=== PATIENT | female | born 1950 | race Caucasian/White ===

== ENCOUNTER 2024-08-21 16:00 | Emergency (ER) | payer MEDICARE, MEDICAID ==
[~2024-08-21] VITALS: Ht 160 cm; Wt 54.4 kg
[~2024-08-21 16:00] MED LIST: MELA1TAB28 PO; PANT40TA PO; PROP40TA7 PO; TRAZ-187 PO
[2024-08-21 16:10] VITALS: BP 145/58; PULSE 69; RESP 16; TEMP 98.1; O2SAT 98
[2024-08-21 16:41] LABS: BASOPHILS # (AUTO) 0.02 K/uL (0.00-0.20); BASOPHILS % (AUTO) 0.3 % (0.0-5.0); HEMATOCRIT 23.9 % (36-48); IMMATURE GRANULOCYTE ABSOLUTE 0.03 K/uL (0-1); LYMPHOCYTES # (AUTO) 0.7 K/uL (1.0-4.8); LYMPHOCYTES % (AUTO) 12.6 % (21.0-51.0); MEAN CORPUSCULAR HGB CONC 28.5 g/dL (32.0-36.0); MEAN CORPUSCULAR VOLUME 80.7 fL (79-99); MONOCYTES # (AUTO) 0.6 K/uL (0.1-1.0); MONOCYTES % (AUTO) 10.1 % (3.0-13.0); NEUTROPHILS # (AUTO) 4.5 K/uL (1.8-7.7); NEUTROPHILS % (AUTO) 76.5 % (40.0-77.0); PLATELET COUNT (AUTO) 151 K/uL (130-400); RED BLOOD CELL COUNT(AUTO) 2.96 MIL/uL (4.00-5.50); RED CELL DISTRIBUTION WIDTH 19.2 % (11.0-15.5); WHITE BLOOD COUNT (AUTO) 5.9 K/uL (4.8-10.8)
[2024-08-21 16:48] LABS: CREATININE 1.1 mg/dL (0.5-1.0); POTASSIUM 4.6 mmol/L (3.5-5.1)
[2024-08-21] MEDS: LIDOCAINE HCL 1% 20 ML VIAL INJ STA (16:55)
--- NOTE | 2024-08-21 17:24 | HMCIMG ---
CT FACIAL BONES WITHOUT CONTRAST INDICATION: Right facial abscess TECHNIQUE: 3D helical CT acquisition through the facial bones with coronal and sagittal reformatting. CT was performed with one or more of the following dose reduction techniques: Automated exposure control, adjustment of the mA and/or kV according to patient size, or use of iterative reconstruction technique. COMPARISON: None FINDINGS: Patient is edentulous. 4.0 cm organized air/fluid collection surrounding the angle of the right mandible without subjacent periosteal reaction, cortical erosive changes, or any abnormal subperiosteal bone resorption to suggest osteomyelitis. Bilateral parotid and submandibular glands appear normal. Orbital durbin and zygomatic arches appear normal. The globes are symmetrical in their appearance, and normal in attenuation. The optic nerves and muscles are normal in caliber. No evidence of preseptal or postseptal mass. No evidence for facial bone fracture. No nasal bone fracture identified. Cribriform plate and anderson josefina are intact. Nasal septum is midline. The visible paranasal sinuses are clear. Middle and inferior nasal turbinates appear unremarkable. Ostiomeatal units are patent bilaterally. IMPRESSION: 4.0 cm organized air/fluid collection surrounding the angle of the right mandible without subjacent periosteal reaction, cortical erosive changes, or any abnormal subperiosteal bone resorption to suggest osteomyelitis.
--- NOTE | 2024-08-21 18:06 | ERN ---
General Chief Complaint: Abscess Stated Complaint: MOUTH ABSCESS Time Seen by MD: 16:02 Source: patient History of Present Illness Initial Comments Patient is a 74-year-old female coming in to be evaluated for right lower jaw swelling. Per patient she has had some issues with the dentition. She also states that she has been having right ear discomfort and believes that the discomfort is related to both sides. Allergies: Coded Allergies: No Known Allergies (Unverified Allergy, Unknown, 04/29/24) Home Meds Active Scripts Propranolol HCl (Propranolol HCl) 40 Mg Tablet, 40 MG PO DAILY, #30 TAB Prov:KAMERON BRANDT MD 05/01/24 Pantoprazole Sodium (Protonix) 40 Mg Tablet.dr, 40 MG PO DAILY, #30 TAB Prov:KAMERON BRANDT MD 05/01/24 Reported Medications Melatonin/Pyridoxine HCl (B6) (Melatonin 3 mg Tablet) 3 Mg-10 Mg Tablet, 1 TAB PO HS for 30 Days, #30 TAB 0 Refills DIRECTED 04/29/24 Trazodone HCl (Trazodone HCl) 100 Mg Tablet, 1 TAB PO HS for 30 Days, #30 TAB 0 Refills 04/29/24 Past Medical History Past Medical History: No Pertinent History, Arthritis Past Surgical History: Hysterectomy Surgical History Other: TUMOR ROS Dictation CONSTITUTIONAL: No chills, no fever, no weakness, no diaphoresis, no malaise. HEAD/FACE: No signs of trauma. EENT: No eye pain, no blurred vision, no tearing, no double vision, no ear pain, no ear discharge, no nose pain, no nasal congestion, no throat pain, no throat swelling, mouth pain. RESPIRATORY: No cough, no orthopnea, no SOB, no stridor, no wheezing. CARDIOVASCULAR: No chest pain, no edema, no palpitations, no syncope. GASTROINTESTINAL/ABDOMINAL: No abdominal pain, no constipation, no diarrhea, no nausea, no vomiting. GENITOURINARY: No abnormal discharge, no dysuria, no frequent urination, no hematuria. No complaints of pain in the genitals. MUSCULOSKELETAL: No back pain, no gout, no joint pain, no joint swelling, no muscle pain, no muscle stiffness, no neck pain. INTEGUMENTARY: No change in color, no change in hair/nails, no dryness, no lesion, no lumps, no rash. NEUROLOGICAL/PSYCH: No anxiety, not depressed, no emotional problem, no headache, no numbness, no pre-existing deficit, no history of seizures, no t remors, no weakness. HEMATOLOGIC/LYMPHATIC: Not anemic, no history of blood clots, no apparent bleeding, no bruising, glands not swollen. All Systems Negative, Except as Noted. Physical Exam Physical Exam Dictation VITAL SIGNS: Reviewed. GENERAL APPEARANCE: Alert, oriented x3, no acute distress, obese. HEAD AND FACE: Non-traumatic. Right lower facial swelling EYES: PERRL, pink conjunctivas, eyelid no trauma, anterior chamber clear. EARS: Pinnas intact and no signs of trauma or erythema. Ear canals clear and no discharge. TMs no erythema. NOSE: No discharge, no bleeding. OROPHARYNX: Mouth normal, teeth no caries, tongue pink. Pharynx clear, no erythema. Tonsils no exudates, no abscesses noted. Mucous membrane moist. NECK: Supple, non-tender, no thyromegaly, no masses, no JVD, no bruits. BREAST: Deferred. CHEST: No tenderness, no crepitus, no paradoxical movement, no retractions. LUNGS: Clear, well-ventilated, symmetric, no rales, no wheezing, no rhonchi, no stridor, good breath sounds bilaterally. HEART: Regular rate, regular rhythm, no murmur, no gallops. VASCULAR: No peripheral edema. ABDOMEN: Soft, positive bowel sounds, nondistended, no guarding, nontender, no rebound, no masses no hepatomegaly, no splenomegaly, no Saldaña's sign, no hernias. RECTAL: Deferred. GENITAL: Deferred. NEUROLOGICAL: Normal speech, gross motor function intact, gross sensory function intact. MUSCULOSKELETAL: Neck nontender, full range of motion, back nontender, full range of motion. EXTREMITIES: Nontender, full range of motion. SKIN: Color pink, dry, no turgor, no rash, no lacerations, no abrasions, no contusions. LYMPHATICS: Deferred. Results Laboratory and Microbiology Lab and Micro Result Laboratory Tests Test 08/21/24 16:29 White Blood Count 5.9 K/uL (4.8-10.8) Red Blood Count 2.96 MIL/uL (4.00-5.50) L Hemoglobin 6.8 g/dL (12.0-16.0) *L Hematocrit 23.9 % (36-48) L Mean Corpuscular Volume 80.7 fL (79-99) Mean Corpuscular Hemoglobin 23.0 pg (27.0-33.0) L Mean Corpuscular Hemoglobin Concent 28.5 g/dL (32.0-36.0) L Red Cell Distribution Width 19.2 % (11.0-15.5) H Platelet Count 151 K/uL (130-400) Mean Platelet Volume 9.5 fL (7.5-10.5) Immature Granulocyte % (Auto) 0.5 % (0-1) Neutrophils (%) (Auto) 76.5 % (40.0-77.0) Lymphocytes (%) (Auto) 12.6 % (21.0-51.0) L Monocytes (%) (Auto) 10.1 % (3.0-13.0) Eosinophils (%) (Auto) 0.0 % (0.0-8.0) Basophils (%) (Auto) 0.3 % (0.0-5.0) Neutrophils # (Auto) 4.5 K/uL (1.8-7.7) Lymphocytes # (Auto) 0.7 K/uL (1.0-4.8) L Monocytes # (Auto) 0.6 K/uL (0.1-1.0) Eosinophils # (Auto) 0.00 K/uL (0.00-0.70) Basophils # (Auto) 0.02 K/uL (0.00-0.20) Absolute Immature Granulocyte (auto 0.03 K/uL (0-1) Nucleated Red Blood Cells 0.0 % (0.0-0.19) Red Blood Cell Morphology See comments Sodium Level 135 mmol/L (136-145) L Potassium Level 4.6 mmol/L (3.5-5.1) Chloride Level 100 mmol/L (101-111) L Carbon Dioxide Level 25 mmol/L (21-32) Blood Urea Nitrogen 18 mg/dL (7-18) Creatinine 1.1 mg/dL (0.5-1.0) H Glomerular Filtration Rate Calc 53 mL/min (>90) Random Glucose 97 mg/dL (70-105) Total Calcium 8.5 mg/dL (8.5-10.1) Labs Reviewed?: Yes EKG/XRAY/US/CT/MRI CT Scan Comment [facility] [address] [place] [address] IMAGING REPORT Signed PATIENT: LEAH STOCK MR#: [id number] : 1950 SEX: F AGE: 74 LOCATION: [facility] ORDER 14 STATUS: REG ER REPORT#: [id number] SERVICE 13 REASON: RIGHT FACIAL ABSCESS ORDERING PHYSICIAN: ANDRES MCKINNEY MD PROCEDURE: MAXFACarnegie Speech WO - CT MAXILLOFACIAL W/O CONTRAST CT FACIAL BONES WITHOUT CONTRAST INDICATION: Right facial abscess TECHNIQUE: 3D helical CT acquisition through the facial bones with coronal and sagittal reformatting. CT was performed with one or more of the following dose reduction techniques: Automated exposure control, adjustment of the mA and/or kV according to patient size, or use of iterative reconstruction technique. COMPARISON: None FINDINGS: Patient is edentulous. 4.0 cm organized air/fluid collection surrounding the angle of the right mandible without subjacent periosteal reaction, cortical erosive changes, or any abnormal subperiosteal bone resorption to suggest osteomyelitis. Bilateral parotid and submandibular glands appear normal. Orbital durbin and zygomatic arches appear normal. The globes are symmetrical in their appearance, and normal in attenuation. The optic nerves and muscles are normal in caliber. No evidence of preseptal or postseptal mass. No evidence for facial bone fracture. No nasal bone fracture identified. Cribriform plate and anderson josefina are intact. Nasal septum is midline. The visible paranasal sinuses are clear. Middle and inferior nasal turbinates appear unremarkable. Ostiomeatal units are patent bilaterally. IMPRESSION: 4.0 cm organized air/fluid collection surrounding the angle of the right mandible without subjacent periosteal reaction, cortical erosive changes, or any abnormal subperiosteal bone resorption to suggest osteomyelitis. DICTATED BY: ALEXSANDER TANG MD DATE: 08/21/241718 ELECTRONICALLY SIGNED BY: ALEXSANDER TANG MD DATE: 08/21/241723 MDM MDM: Differential diagnosis: Osteomyelitis of the jaw, anemia Rationale: Tests considered and ordered secondary to shared decision making include: labs, ECG and radiology Previous outside records reviewed: Old ER visits. Risk of complication and/or morbidity or mortality of patient management: None Medications-Per medication reconciliation Need for hospitalization: Patient does meet criteria for hospitalization. Need for emergency major/minor surgery: No There are no social concerns with this patient. Prescription drug management Prescriptions will include symptomatic care Patient's prior external medical records from other ER visits were reviewed by me as indicated. Prior testing and results from previous visits were reviewed. Prior tests were taken into account with medical decision making and resource utilization, independent historian/historians were used to obtain complete medical history. I independently interpreted the test that were performed, results were reviewed by me and considered findings on radiology if ordered. Medical management and examination interpretation discussions were had by me with other qualified healthcare professionals as indicated for the patient's care. Patient is a 74-year-old female coming in with a right jaw pain and swelling. Per CT patient has osteomyelitis of the right jaw. When this information was disclose patient refused to believe it I did advise her she needs to stay for ongoing evaluation and management IV antibiotics were started. Along with the CT of the jaw laboratory workup was performed which disclose a hemoglobin of 6.8. She also states that she has had GI bleeds in the past for which she required admission. I spoke to patient for about half an hour in regards to reasons why she needs to stay. She states he needs to leave and states that if she gets worse she will follow up at the nearest ER. Patient received IV antibiotics to help her and I did prescribe continuing oral antibiotics. ED Course Orders Procedure Category Date Status Time Cbc With Differential LAB 08/21/24 Complete 16:14 Basic Metabolic Panel LAB 08/21/24 Complete 16:14 Ct Maxillofacial W/O CT 08/21/24 Resulted Contrast 16:14 Lidocaine Hcl 1% 20ml PHA 08/21/24 Complete Vial (Lidocaine Hc 16:14 Occult Blood Stool LAB 08/21/24 Logged Single Only 16:56 Type And Screen BBK 08/21/24 Complete 16:57 Vancomycin 1g/250ml PHA 08/21/24 Complete Kit (Vancomycin 1g/2 18:30 Zosyn 3.375gm+Ns 50ml PHA 08/21/24 Complete (Zosyn 3.375gm+Ns 18:30 Current Medications Medications (Trade) Dose Ordered Sig/Ebony Route PRN Reason Start Time Stop Time Status Last Admin Dose Admin Lidocaine HCl (Lidocaine HCl 1% 20ml Vial) 20 ml ONCE STAT INJ 08/21/24 16:14 08/21/24 16:15 DC 08/21/24 16:55 Piperacillin Sod/ Tazobactam Sod (Zosyn 3.375gm+NS 50ml) 3.375 gm ONCE ONCE IV 08/21/24 18:30 08/21/24 18:31 DC 08/21/24 18:53 Vancomycin HCl (Vancomycin 1g/ 250ml Kit) 1 gm ONCE ONCE IV 08/21/24 18:30 08/21/24 18:31 DC Vital Signs Date Time Temp Pulse Resp B/P (MAP) Pulse Ox O2 Delivery O2 Flow Rate FiO2 08/21/24 16:10 98.1 69 16 145/58 98 Room Air* 0 21 08/21/24 16:02 98.2 69 16 143/55 98 Room Air 0 DX & DISP Disposition: AMA Departure Impression: Primary Impression: GI bleed Additional Impression: Osteomyelitis of jaw Condition: Against Medical Advice Scripts Clindamycin HCl (Clindamycin HCl) 300 Mg Capsule 1 CAP PO QID for 7 Days, #28 CAP 0 Refills Prov: ANDRES MCKINNEY MD 08/21/24 Additional Instructions: Advised patient findings per CT and laboratory workup patient has a osteomyelitis of the right jaw I advised her she needs to be admitted due to severity of the infection she refused to stay. I went ahead and further explain low reason she needed to stay which included my infection leading to sepsis. Referrals: SELF,REFERRAL (PCP) ANDRES MCKINNEY MD Aug 21, 2024 18:06
[2024-08-21] MEDS: ZOSYN 3.375GM +NS 50ML IV ONE (18:53)
[2024-08-21] MEDS ORDERED: CLIN-141 PO (19:00)
--- NOTE | 2024-08-21 19:20 | NUR ---
PT IS ADAMANT THAT SHE HAS TO LEAVE TO TAKE CARE OF HER PUPPY. MARGI NG RN AND MYSELF TALKED TO HER AND EXPLAINED THE CONSEQUENCES OF LEAVING WITHOUT ANTIBIOTIC TREATMENT AND ALSO BLOOD TRANSFUSION. SHE ALLOWED THE INFUSION OF ZOSYN IT WAS THE QUICKES ONE,BUT NOTHING ELSE.SHE HAS SIGNED THE AMA FORM AND LEFT WITH HER NEIGHBOR.
[2024-08-21] MEDS: VANCOMYCIN KIT 1 GM/250 ML IV.KIT IV ONE (19:45)
== END 2024-08-21 19:20 | disposition left against medical advice (07) ==
LOC: EDH 16:00
DX: K92.2 Gastrointestinal hemorrhage, unspecified (principal); M27.2 Inflammatory conditions of jaws; Z79.899 Other long term (current) drug therapy; Z90.710 Acquired absence of both cervix and uterus
CPT/HCPCS: 99285; 96365; 70486; 80048; 85025; 86850; 86900; 86901; 36415; J2543; J3370